=== PATIENT | male | born 1960 | race Caucasian/White ===

== ENCOUNTER → 2020-01-08 08:39 | Outpatient (CLI) | payer BC | END | disposition home or self-care (01) | LOC: D.HCCECHO 08:39 | PROVIDERS: ATTEND Internal Medicine Cardiovascular Disease | DX: I20.9 Angina pectoris, unspecified (principal); I10 Essential (primary) hypertension ==

== ENCOUNTER 2020-06-11 07:05 | Day surgery (SDC) | payer BC ==
[~2020-06-11] VITALS: Ht 172.7 cm; Wt 65.5 kg
--- NOTE | ~2020-06-11 | HEMODYNAMI ---
PATIENT:MELANIE MEDINA MEDICAL RECORD: [id number] : 58 LOCATION:[facility] ADMISSION DATE: 06/11/20 Generatedon:06/11/20209:50 Patient name: MELANIE MEDINA Patient #: [id number] SSN: [id number] : 1960 Date of study: 06/11/2020 Page: Of Hemodynamic Procedure Report Patient Data Patient Demographics Procedure consent was obtained First Name: MELANIE Gender: Male Last Name: CAROL : 1960 Patient #: [id number] Age: 60 year(s) Race: SSN: [id number] Additional ID: [id number] Contact details [address]: [address] [place] [address] State: [place] City: [place] Zip code: [address] Past Medical History Performed procedures and imaging results Date Procedure Procedure Results Comments 01/08/2020 Stress testing Positive->Intermediate with SPECT MPI risk Allergies: No known allergies Admission Admission Data Admission Date: 06/11/2020 Admission Time: 7:05 Arrival Date: 06/11/2020 Arrival Time: 0:00 Admit Source: Other Insurance Payor: Private health insurance [facility] #: [id number] Height (in.): 68 BSA: 1.78 (m2) Height (cm.): 172.72 BMI: 21.94 (kg/m2) Weight (lbs.): 144.29 Weight (kg.): 65.45 Lab Results Lab Result Date: 06/11/2020 Lab Result Time: 0:00 Biochemistry Name Units Result Min Max BUN mg/dl 10 --(-*--)-- 7 18 Creatinine mg/dl 0.8 --(-*--)-- 0.6 1.3 eGFR ml/min 90 --(*---)-- 90 120 NONAFRICAN CBC Name Units Result Min Max Hematocrit % 41.3 -*(----)-- 42 54 Hemoglobin g/dl 13.8 --(*---)-- 13.5 17.5 Procedure Procedure Types Cath Procedure Diagnostic Procedure [facility] w/Coronaries Sedation Charges Moderate Sedation up to 15 minutes Procedure Description Procedure Date Procedure Date: 06/11/2020 Procedure Start Time: 9:37 Procedure End Time: 9:49 Procedure Staff Name Function Rojelio Zazueta MD Performing Physician Sonali Balbuena RT Monitor Abena Justice RT Scrub Greg Diana RN Nurse Procedure Data Cath Procedure Fluoroscopy Diagnostic fluoroscopy Total fluoroscopy Time: 2.5 time: 2.5 min min Diagnostic fluoroscopy Total fluoroscopy dose: 388 dose: 388 mGy mGy Contrast Material Contrast Material Type Amount (ml) Isovue 370 45 Entry Location Entry Primary Successful Side Size Upsize Upsize Entry Closure Massey ccessful Closure Location (Fr) 1 (Fr) 2 (Fr) Remarks Device Remarks Radial Right 6 Fr Mechanical artery Short Compression Estimated blood loss: 5 ml Diagnostic catheters Device Type Used For End Catheter Placement DIAGNOSTIC Douglas 110cm Procedure 5Fr catheter ([id number]) Procedure Complications No complications Procedure Medications Medication Administration Route Dosage 0.9% NaCl I.V. ml/hr Oxygen etCO2 Nasal cannula 2 l/min Heparin Flush Bag added to field 2 bags (1000units/500ml NS) Lidocaine 2% added to field 20 Radial Cocktail added to field 1 syringe (Verapamil 2mg/Nitro 400mcg/Heparin 1500units) Versed I.V. 2 mg Fentanyl I.V. 100 mcg Radial Cocktail I.A. 1 syringe (Verapamil 2mg/Nitro 400mcg/Heparin 1500units) Hemodynamics Rest BSA: 1.78 (m2) HGB: 13.8 (g/dl) O2 Consumption: Estimated: 210.41 (ml/min) O2 Co nsumption indexed: Estimated:118.21 (ml/min/m) Heart Rate: 72 (bpm) Pressure Samples Time Site Value (mmHg) Purpose Heart Use Rate(bpm) 9:41 LV 122/-10,4 Snapshot 74 Gradients Valve Time Site Site Mean SEP/DFP Peak To Heart Use 1 2 (mmHg) (sec/min) Peak Rate (mmHg) (bpm) Aortic 9:42 LV AO 100 Snapshots Pre Cath Intra NCS Post Cath Vital Signs Time Heart Resp SPO2 etCO2 NIBP (mmHg) Rhythm Pain Sedation Rate (ipm) (%) (mmHg) Status Level (bpm) 8:50:29 74 18 100 0 133/82(107) NSR 0 (11) 10(A) , No pain 8:54:38 73 18 100 14.9 131/83(117) NSR 0 (11) 10(A) , No pain 8:58:50 78 17 100 0 125/78(111) NSR 0 (11) 10(A) , No pain 9:03:00 75 14 100 41.1 131/78(105) NSR 0 (11) 10(A) , No pain 9:07:14 71 15 100 23.9 122/73(104) NSR 0 (11) 10(A) , No pain 9:11:22 73 15 100 9.7 119/73(105) NSR 0 (11) 10(A) , No pain 9:15:30 74 16 100 2.9 130/77(101) NSR 0 (11) 10(A) , No pain 9:19:42 66 11 100 26.2 114/78(106) NSR 0 (11) 10(A) , No pain 9:23:50 66 11 100 29.9 119/74(106) NSR 0 (11) 10(A) , No pain 9:27:59 64 13 100 33.6 122/71(94) NSR 0 (11) 10(A) , No pain 9:32:10 66 15 100 37.4 134/70(91) NSR 0 (11) 10(A) , No pain 9:36:19 61 15 100 41.9 124/74(90) NSR 0 (11) 9(A) , No pain 9:40:31 61 12 100 37.4 114/69(100) NSR 0 (11) 9(A) , No pain 9:44:39 72 16 99 37.4 111/68(86) NSR 0 (11) 10(A) , No pain 9:48:43 59 8 99 35.9 119/77(89) NSR 0 (11) 10(A) , No pain Medications Time Medication Route Dose Verified Delivered Reason Notes Effectiveness by by 8:48:18 0.9% NaCl I.V. ml/hr Greg Garza Per Adalgisa Diana physician RN RN 8:48:26 Oxygen etCO2 2 l/min Greg Greg for low 02 Nasal Lorigan Lorigan sats cannula RN RN 8:48:38 Heparin Flush added 2 bags Greg Greg used for Bag to Lorigan Lorigan procedure (1000units/500ml field RN RN NS) 8:48:53 Lidocaine 2% added 20ml Greg Greg for local to vial Lorigan Lorigan anesthetic field RN RN 8:49:21 Radial Cocktail added 1 Greg Greg used for (Verapamil to syringe Lorigan Lorigan procedure 2mg/Nitro field RN RN 400mcg/Heparin 1500units) 9:26:40 Versed I.V. 2 mg Greg Greg for sedation Adalgisa Diana RN RN 9:26:49 Fentanyl I.V. 100 mcg Greg Greg for sedation Adalgisa Diana RN RN 9:39:39 Radial Cocktail I.A. 1 Greg Rojelio for (Verapamil syringe Keraigan Marbin MD vasodilation 2mg/Nitro RN 400mcg/Heparin 1500units) Procedure Log Time Note 8:25:55 Diagnostic Cath Status : Elective 8:26:15 Abena Justice RT(R) sent for patient. Start room use. 8:26:16 Time tracking: Regular hours (M-F 7:00 - 5:00) 8:26:21 Plan of Care:Hemodynamics will remain stable., Cardiac rhythm will remain stable., Comfort level will be maintained., Respiratory function will remain adequate., Patient/ family verbilizes understanding of procedure., Procedure tolerated without complication., Recovers from procedure without complications.. 8:32:19 Arrival Date: 06/11/2020 12:00:00 AM 8:32:19 Admit Source: Other 8:32:24 Insurance Payor : Private health insurance 8:32:43 Patient Height : 68 inches 8:32:48 Patient Weight : 144.29 lbs 8:33:02 Informed consent obtained and on chart 8:34:34 Patient allergic to No known allergies 8:34:51 H&P Date Dictated: 05/20/2020 Within 30 days and on chart.. 8:34:51 Pre-procedure instructions explained to patient. 8:34:52 Pre-op teaching completed and patient verbalized understanding. 8:34:54 Family unavailable. 8:34:56 Patient NPO since Midnight. 8:35:01 Procedure Status Elective Heart Cath (OP). 8:35:08 Alarms reviewed by R. N. 8:35:09 Sharps counted by scrub and verified by R.N. 8:35:14 Lab results completed and on chart. 8:35:28 Stress Test: yes; abnormal INFERIOR AND APICAL 8:36:04 Lab Result : Hemoglobin 13.8 g/dl 8:36:04 Lab Result : Hematocrit 41.3 % 8:43:46 Patient received from Pre/Post Procedure Room to CCL 1 Alert and oriented. Tansferred to table in Supine position. 8:43:48 Warm blankets applied, and amy hugger turned on for patient comfort. 8:43:48 Correct patient and procedure confirmed by team. 8:43:48 ECG and BP/O2 sat monitors applied to patient. 8:43:49 Full Disclosure recording started 8:43:52 Is the patient allergic to Iodine/contrast media? No. 8:43:54 Is patient on blood thinner?No 8:43:55 Patient diabetic? Yes. 8:43:57 If diabetic: On Metformin? Yes 8:44:00 If on Metformin: Last Dose? 06/09/2020 8:44:06 Previous problem with sedation/anesthesia? No ? 8:44:07 Snore? Yes 8:44:08 Sleep apnea? No 8:44:09 Deviated septum? No 8:44:10 Opens mouth fully? Yes 8:44:10 Sticks out tongue? Yes 8:44:12 Airway obstruction? No ? 8:44:15 Dentures? No ? 8:44:25 Pre procedure: right dorsailis pedis pulse 1+ Palpable, but thready & weak; easily obliterated 8:44:45 Modified Alden's test Ulnar < 7 seconds 8:46:06 Patient pain scale 0/10 ?. 8:46:13 IV patent on arrival in left antecubital with 0.9% NaCl at [facility]. 8:46:18 Right Radial & Right Groin area was prepped with chlora-prep and draped in sterile fashion 8:46:27 Use device set Radial Dx or PCI 8:46:29 ACIST Syringe (18241) opened to sterile field. 8:46:30 Bag Decanter () opened to sterile field. 8:46:30 ACIST Hand Control (83413) opened to sterile field. 8:46:30 ACIST Manifold (72921) opened to sterile field. 8:46:31 Tegaderm 4 x 4 (1626W) opened to sterile field. 8:46:31 Medline Cath Pack ([id number]) opened to sterile field. 8:46:32 MBrace Wrist Support ([id number]) opened to sterile field. 8:46:33 NEEDLE Cook 21G 4cm Radial ([id number]) opened to sterile field. 8:46:34 EMERALD Guide Wire (502-792) opened to sterile field. 8:46:34 SHEATH 6FR RAIN ([id number]) opened to sterile field. 8:48:18 0.9% NaCl ml/hr I.V. was administered by Greg Diana RN; Per physician; Verbal order read back and verified. 8:48:26 Oxygen 2 l/min etCO2 Nasal cannula was administered by Greg Diana RN; for low 02 sats; Verbal order read back and verified. 8:48:38 Heparin Flush Bag (1000units/500ml NS) 2 bags added to field was administered by Greg Diana RN; used for procedure; Verbal order read back and verified. 8:48:53 Lidocaine 2% 20ml vial added to field was administered by Greg Diana RN; for local anesthetic; Verbal order read back and verified. 8:49:21 Radial Cocktail (Verapamil 2mg/Nitro 400mcg/Heparin 1500units) 1 syringe added to field was administered by Greg Diana RN; used for procedure; Verbal order read back and verified. 8:49:27 Vital chart was started 8:50:15 Baseline sample Acquired. 8:50:51 Rhythm: sinus rhythm 8:52:06 Risk of Mortality: 0.1 8:52:08 Risk of blood transfusion: 0.1 8:52:10 Risk of THOMAS: 0.1 8:52:36 Lab Result : Creatinine 0.8 mg/dl 8:52:36 Lab Result : BUN 10 mg/dl 8:52:36 Lab Result : eGFR NONAFRICAN 90 ml/min 9:26:04 --------ALL STOP TIME OUT------ 9:26:05 Final Timeout: patient, procedure, and site verified with staff and physician. All members of the team are in agreement. 9:26:07 Right Radial & Right Groin site verified by team. 9:26:11 Fire Safety Assessment: A--An alcohol-based skin anteseptic being used preoperatively., C--Open oxygen or nitrous oxide is being used., D--An ESU, laser, or fiber-optic light is being used. 9:26:16 Physical assessment completed. ASA score P 2 - A patient with mild systemic disease as per Rojelio Zazueta MD. 9:26:19 1) 90+ Normal kidney functon but urine findings or structural abnormalities or genetic trait point to kidney disease. 9:26:24 Maximum allowable contrast dose (3.7 X eGFR X 0.75)250 ml. 9:26:28 Sedation plan: IV Moderate Sedation Medication:Versed, Fentanyl 9:26:40 Versed 2 mg I.V. was administered by Greg Diana RN; for sedation; Verbal order read back and verified. 9:26:49 Fentanyl 100 mcg I.V. was administered by Greg Diana RN; for sedation; Verbal order read back and verified. 9:37:05 Procedure started. 9:37:19 Local anesthetic to right radial artery with Lidocaine 2% by Rojelio Zazueta MD.INITIAL ACCESS ONLY 9:39:17 A 6 Fr Short sheath was inserted into the Right Radial artery 9:39:39 Radial Cocktail (Verapamil 2mg/Nitro 400mcg/Heparin 1500units) 1 syringe I.A. was administered by Rojelio Zazueta MD; for vasodilation; Verbal order read back and verified. 9:39:49 A DIAGNOSTIC Douglas 110cm 5Fr catheter ([id number]) was advanced over the wire and used for Procedure. 9:40:23 LV gram done using FISHER 9:41:14 Injector settings: Ml/sec: 5, Volume: 15, 9:41:28 LV hemodynamics recorded. 9:41:40 EF : 60 % 9:42:26 LCA angiography performed. 9:42:31 Injector settings: Ml/sec: 3, Volume: 6, 9:44:06 RCA angiography performed. 9:44:08 Injector settings: Ml/sec: 3, Volume: 6, 9:44:28 ACCDominant side:Left 9:45:36 Catheter removed. 9:45:46 ZEPHYR REGULAR TR BAND ([id number]) opened to sterile field. 9:46:40 Sheath removed intact; hemostasis achieved with Mechanical Compression to the Right Radial artery. 9:46:43 Procedure ended.(Physican Out) 9:47:12 Fluoroscopy time 02.50 minutes. 9:47:18 Fluoroscopy dose: 388 mGy 9:47:18 Flurop Dose total: 388 9:47:24 Dose Area Product 75671 mGy/cm. 9:47:28 Contrast amount:Isovue 370 45ml. 9:47:31 Maximum allowable dose exceeded? No. 9:47:32 Sharps counted by scrub and verified by R.N. 9:47:35 [place] band inflated with 10cc of air. 9:47:38 Post Procedure Pulses reassessed and unchanged 9:47:41 Post procedure: right dorsailis pedis pulse 2+ Normal; easily identifiable; not easily obliterated. 9:47:43 Post-procedure physical assessment completed. ASA score P 2 - A patient with mild systemic disease as per Rojelio Zazueta MD. 9:47:46 Post procedure rhythm: sinus rhythm 9:47:49 Estimated blood loss: 5 ml 9:47:51 Post procedure instruction explained to patient.Patient verbalizes understanding. 9:47:53 Patient needs reinforcement of post procedure teaching. 9:47:59 Procedure type changed to Cath procedure, Diagnostic procedure, LHC, [facility] w/Coronaries, Sedation Charges, Moderate Sedation up to 15 minutes 9:48:13 Procedure and supply charges have been captured, reviewed, submitted and are correct. 9:48:17 Procedure Complication : No complications 9:48:22 [facility] Findings: MVD- MD will discuss options w/ pt 9:48:24 Operative report dictated upon procedure completion. 9:48:25 See physician's report for complete and final results. 9:48:26 Report given to Pre/Post Procedure Room. 9:48:29 Patient transfered to Pre/Post Procedure Room with Stretcher. 9:49:27 Vital chart was stopped 9:49:30 Procedure ended. 9:49:30 Full Disclosure recording stopped 9:49:38 End room use (Document Last) 9:49:48 End room use (Document Last) 9:50:06 End room use (Document Last) Device Usage Item Name Manufacture Quantity Catalog Hospital Part Current Minima l Lot# / Number Charge Number Stock Stock Serial# Code [facility] 1 37988 297809 [id number] [id number] 20 Syringe Medical (29054) Systems Inc Bag Microtek 1 2001S [id number] 25847 055946 5 Decanter Medical Inc. () ACIST Hand Acist 1 33006 506499 677444 021159 5 Control Medical (91388) Systems Inc ACIST Acist 1 42570 010798 059310 005473 5 Manifold Medical (19622) Systems Inc Tegaderm 4 3M 1 1626W 101488 756943 392039 5 x 4 (1626W) Medline Medline 1 [id number] 160620 86328 367903 5 Cath Pack ([id number]) MBrace Advanced 1 140-0250-00 460404 09534 006060 5 Wrist Vascular Support Dynamics ([id number]) NEEDLE Cook Cook Medical 1 Q04276 709171 960958 954749 5 21G 4cm Radial (J29614) EMERALD Cardinal 1 502-511 250869 181164 722913 5 Guide Wire Health (768-455) SHEATH 6FR Cardinal 1 [id number] 860409 1803045 710665 5 [facility] Health (5504035) DIAGNOSTIC Terumo 1 40-6785 966306 519474 771274 5 Douglas 110cm 5Fr catheter (825910) ZEPHYR Cardinal 1 670176 359889 0811041 188555 5 REGULAR TR Health BAND (748541) Signature Audit [place] Stage Time Signature Unsigned Intra-Procedure 06/11/2020 Sonali Balbuena 9:49:48 AM RT(R) Intra-Procedure 06/11/2020 Greg 9:50:06 AM Adalgisa RANGEL Intra-Procedure 06/11/2020 Rojelio Zazueta MD 9:50:49 AM [facility] [address] [place] [address]
[2020-06-11] MEDS ORDERED: GLIPIZIDE10 MG PO (08:02)
[2020-06-11] MEDS ORDERED: GLUCOPHAGE1000 MG PO (08:02)
[2020-06-11] MEDS ORDERED: PIOGLITAZONE15 MG PO (08:02)
[2020-06-11] MEDS ORDERED: LISINOPRIL5 MG PO (08:02)
[2020-06-11] MEDS ORDERED: TIROSINT50 MCG PO (08:03)
[2020-06-11] MEDS ORDERED: LIPITOR40 MG PO (08:03)
[2020-06-11 08:16] VITALS: BP 139/75; Ht 172.7 cm; Wt 65.5 kg
[2020-06-11 08:26] LABS: BASOPHILS 0.2 % (0-2); EOSINOPHILS 1.1 % (0-7); HEMATOCRIT 41.3 % (42.0-54.0); HEMOGLOBIN 13.8 g/dL (13.5-17.5); IMMATURE GRANULOCYTES 0.4 % (0-5); LYMPHOCYTES 16.9 % (15-50); MCH 30.1 pg (26.0-34.0); MCHC 33.4 g/dL (31.0-37.0); MEAN PLATELET VOLUME 8.9 fL (7.4-10.4); MONOCYTES 10.4 % (2-11); PLATELET COUNT 312 10x3/uL (130-400); RBC 4.59 10x6/uL (4.20-6.10); RDW 13.3 % (11.5-14.5); WBC 5.5 10x3/uL (4.8-10.8)
[2020-06-11 08:36] LABS: CALC OSMOLALITY 280 mosm/kg (275-300); CALCIUM 9.2 mg/dL (8.5-10.1); CARBON DIOXIDE 28.7 mmol/L (21.0-32.0); CHLORIDE - SERUM 104 mmol/L (98-107); CREATININE - SERUM 0.8 mg/dL (0.6-1.3); GLUCOSE 159 mg/dL (74-106); SODIUM 140 mmol/L (136-145); UREA NITROGEN 10 mg/dL (7-18); eGFR NON AFRICAN AMERICAN > 90 mL/min (90-120)
[2020-06-11 08:42] LABS: CHOL - HDL RATIO 2.8 ratio (2.3-4.9); LDL-HDL RATIO 1.6 ratio (1.5-3.5)
--- NOTE | 2020-06-11 09:55 | NUR ---
PT RECEIVED VIA STRETCHER FROM FIRE SUPPORT MAN FOR RECOVERY. PT AWAKE, SLIGHTLY DROWSY. DENIES PAIN OR DISCOMFORT. IV PATENT INFUSING VIA ORDERS TO R ARM. PT PLACED ON CARDIAC MONITORS, HR NSR RATE 75, BP 127/73, RR 12, SAT 100 ON ROOM AIR. ZYHPER BAND AND IMMOBILIZER TO R WRIST/ARM, NO BLEEDING OR S/S HEMATOMA OR BLEEDING. ARM PINK AND WARM, CAP REFILL BRISK. PT INSTRUCTED NOT TO USE ARM, HE VERBALIZED UNDERSTANDING. SPRITE GIVEN, CALL LIGHT IN REACH. SON AT BS.
--- NOTE | 2020-06-11 10:15 | NUR ---
PT DOING WELL, DENIES PAIN OR DISCOMFORT. ZBAND AND IMMOBILIZER IN PLACE, NO S/S HEMATOMA OR BLEEDING. ARM PINK AND WARM, CAP REFILL BRISK. CALL LIGHT IN REACH. VSS AT PRESENT.
--- NOTE | 2020-06-11 10:20 | NUR ---
DISCHARGE INSTRUCTIONS REVIEWED W PT, SHE VERBALIZED UNDERSTANDING. IV REMOVED W CATH INTACT, MONITORS REMOVED. R GROIN SOFT, DRESSING CDI NO S/S HEMATOMA OR BLEEDING. PT UP TO DRESS FOR DISCHARGE.
--- NOTE | 2020-06-11 10:28 | NUR ---
PT AMBULATED TO BR, VOIDING W/O DIFFICULITY.
--- NOTE | 2020-06-11 10:55 | NUR ---
3CC AIR REMOVED FROM Z BAND, NO BLEEDING OR S/S HEMATOMA NOTED. VSS AT PRESENT, CALL LIGHT IN REACH
--- NOTE | 2020-06-11 11:31 | NUR ---
DR FERNANDEZ AT , DISCUSSED W PT AND SON PROCEDURE RESULTS AND PLAN OF CARE. ORDERS FOR IMDUR 30MG TO BE CALLED IN TO PHARMACY. 5 ADD'L CC AIR REMOVED FROM Z BAND, NO BLEEDING NOTED.
--- NOTE | 2020-06-11 12:00 | NUR ---
ZBAND AND IMMOBILIZER IN PLACE, NO BLEEDING OR S/S HEMATOMA NOTED. 700 CC CLEAR YELLOW URINE OUT VIA URINAL. 1220 DISCHARGE INSTRUCTIONS REVIEWED W PT AND SON, DISCUSSED APPOINTMENT WITH DR ALONSO ON JUN 18 AT 1130. IV REMOVED W CATH INTACT, MONITORS REMOVED AND PT UP TO DRESS FOR DISCHARGE.
--- NOTE | 2020-06-11 12:30 | NUR ---
ZBAND AND REMAINING AIR REMOVED W/O BLEEDING OR S/S HEMATOMA. 2X2 AND SM TEGADERM DRESSING APPLIED, IMMOBILIZER RE POSITIONED. 1235 PT DISCHARGED VIA WC TO SON WAITING IN PRIVATE VEHICLE. PT HAD ALL BELONGINGS AND DISCCHARGE PAPERWORK IN HAND.
== END 2020-06-11 12:35 | disposition home or self-care (01) ==
LOC: D.CATH 07:05
PROVIDERS: ATTEND Internal Medicine Cardiovascular Disease
DX: I20.9 Angina pectoris, unspecified (principal); R94.39 Abnormal result of other cardiovascular function study; R06.00 Dyspnea, unspecified; R42 Dizziness and giddiness; R07.9 Chest pain, unspecified; E11.9 Type 2 diabetes mellitus without complications